=== PATIENT | female | born 1950 | race Asian ===

== ENCOUNTER 2021-05-02 13:28 | Inpatient (IN) | payer MEDICARE ==
[~2021-05-02] VITALS: Ht 154.9 cm; Wt 94.3 kg
--- NOTE | 2021-05-02 14:10 | NUR ---
ROSALES RN: ICE PACK APPLIED IN TRIAGE.
--- NOTE | 2021-05-02 17:32 | NUR ---
PT BIBA, FELL OFF OF STOOL, RIGHT KNEE PAIN, UNABLE TO BEAR WEIGHT 2/2 PAIN DISTAL CMS. PT A&O, RESPS EVEN AND UNLABORED, VSS, NADN.
--- NOTE | 2021-05-02 18:43 | NUR ---
anshu Barron at bedside for eval
--- NOTE | 2021-05-02 19:00 | NUR ---
pt to radiology
[2021-05-02] MEDS ORDERED: ONDANSETRON 2MG/ML, 2ML ONE (20:09)
[2021-05-02] MEDS ORDERED: MORPHINE SULFATE 4 MG/ML, 1ML ONE (20:09)
[2021-05-02] MEDS ORDERED: METO1TAB7 PO (20:27)
[2021-05-02] MEDS ORDERED: ATOR-2 PO (20:27)
--- NOTE | 2021-05-02 20:28 | NUR ---
PIV placed, pt medicated per order, tolerated well. pt aware of admit plan
[2021-05-02] MEDS ORDERED: ONDANSETRON 2MG/ML, 2ML IVPush ONE (20:30)
[2021-05-02] MEDS ORDERED: MORPHINE SULFATE 4 MG/ML, 1ML IVPush PRN (20:30)
[2021-05-02 20:50] LABS: BASOPHILS % (AUTO) 1 % (0-1); EOSINOPHILS % (AUTO) 1 % (1-7); LYMPHOCYTES % (AUTO) 11 % (22-44); MEAN CORPUSCULAR HEMOGLOBIN 28.6 pg (27.0-34.8); MEAN PLATELET VOLUME 7.9 fL (7.4-10.4); MONOCYTES % (AUTO) 6 % (2-9); NEUTROPHILS % (AUTO) 82 % (42-75); PLATELET COUNT 325 x10^3/uL (130-400); RED BLOOD COUNT 5.14 x10^6/uL (3.82-5.3); RED CELL DISTRIBUTION WIDTH 14.2 % (9.6-15.2)
[2021-05-02 20:59] LABS: ALBUMIN 3.6 g/dL (3.4-5.0); ANION GAP 7 mmol/L (5-15); CALCIUM 8.6 mg/dL (8.5-10.1); CHLORIDE 108 mmol/L (98-107); CREATININE 0.45 mg/dL (0.55-1.02)
--- NOTE | 2021-05-02 21:20 | NUR ---
Pt to be admitted to , room 454. Report called to FAMILIA DUDLEY.
[2021-05-02] MEDS ORDERED: OXYcodone IR 5MG TABLET PO PRN (21:30)
[2021-05-02] MEDS ORDERED: ONDANSETRON 2MG/ML, 2ML IVPush PRN (21:30)
[2021-05-02] MEDS ORDERED: POLYETHYLENE GLYCOL 17 GM PACKET PO PRN (21:30)
[2021-05-02] MEDS ORDERED: HYDROmorphone 2 MG/ML, 1ML IVPush PRN (21:30)
[2021-05-02] MEDS ORDERED: DILTIAZEM 5 MG/ML, 5ML IVPush PRN (21:30)
[2021-05-02] MEDS ORDERED: MELATONIN 5 MG TABLET PO PRN (21:30)
[2021-05-02] MEDS ORDERED: LABETALOL 5MG/ML, 20ML IVPush PRN (21:30)
[2021-05-02] MEDS: ACETAMINOPHEN 500 MG TABLET PO SCH (22:11)
[2021-05-02 23:06] VITALS: BP 121/73
[2021-05-03] MEDS: ACETAMINOPHEN 500 MG TABLET PO SCH ×4 (01:00→12:39)
[2021-05-03 01:57] VITALS: BP 100/67
[2021-05-03 07:36] LABS: BASOPHILS % (AUTO) 0 % (0-1); EOSINOPHILS % (AUTO) 0 % (1-7); LYMPHOCYTES % (AUTO) 16 % (22-44); MEAN CORPUSCULAR HEMOGLOBIN 29.2 pg (27.0-34.8); MEAN CORPUSCULAR HGB CONC 33.6 g/dL (32.4-35.8); MEAN PLATELET VOLUME 8.2 fL (7.4-10.4); MONOCYTES % (AUTO) 8 % (2-9); NEUTROPHILS % (AUTO) 75 % (42-75); PLATELET COUNT 289 x10^3/uL (130-400); RED BLOOD COUNT 4.51 x10^6/uL (3.82-5.3); RED CELL DISTRIBUTION WIDTH 14.2 % (9.6-15.2)
[2021-05-03 07:41] LABS: ANION GAP 5 mmol/L (5-15); CALCIUM 8.4 mg/dL (8.5-10.1); CHLORIDE 108 mmol/L (98-107)
[2021-05-03 08:04] VITALS: BP 107/73
[2021-05-03] MEDS: KETOROLAC 30 MG/1 ML IV PRN (11:31)
[2021-05-03] MEDS: METOPROLOL SUCCINATE 100 MG TAB.ER.24H PO SCH (12:39)
[2021-05-03 14:50] VITALS: BP 101/72
[2021-05-03 19:30] VITALS: BP 103/74
[2021-05-03] MEDS: ACETAMINOPHEN 500 MG TABLET PO PRN (19:35)
[2021-05-04 00:51] VITALS: BP 120/81
[2021-05-04] MEDS: ACETAMINOPHEN 500 MG TABLET PO PRN (05:05)
[2021-05-04 06:54] LABS: BASOPHILS % (AUTO) 0 % (0-1); EOSINOPHILS % (AUTO) 1 % (1-7); LYMPHOCYTES % (AUTO) 17 % (22-44); MEAN CORPUSCULAR HEMOGLOBIN 29.4 pg (27.0-34.8); MEAN CORPUSCULAR HGB CONC 33.9 g/dL (32.4-35.8); MEAN PLATELET VOLUME 8.2 fL (7.4-10.4); MONOCYTES % (AUTO) 9 % (2-9); NEUTROPHILS % (AUTO) 73 % (42-75); PLATELET COUNT 250 x10^3/uL (130-400); RED BLOOD COUNT 4.33 x10^6/uL (3.82-5.3); RED CELL DISTRIBUTION WIDTH 14.1 % (9.6-15.2)
[2021-05-04 06:57] LABS: INTERNATIONAL NORMALIZED RATIO 1.02 (0.93-1.1); PROTHROMBIN TIME 10.9 Seconds (9.6-11.5)
[2021-05-04 07:01] LABS: ALANINE AMINOTRANSFERASE 16 U/L (12-78); ANION GAP 6 mmol/L (5-15); CALCIUM 8.4 mg/dL (8.5-10.1); CHLORIDE 107 mmol/L (98-107); CREATININE 0.33 mg/dL (0.55-1.02)
[2021-05-04 07:03] LABS: ALKALINE PHOSPHATASE 90 U/L (45-117); BILIRUBIN,TOTAL 1.1 mg/dL (0.2-1.0); TOTAL PROTEIN 6.8 g/dL (6.4-8.2)
[2021-05-04] MEDS ORDERED: POTASSIUM CHLORIDE 40 MEQ in SODIUM CHLORIDE 0.9% 500 ML IV ONE (08:00)
[2021-05-04 08:02] VITALS: BP 106/67
[2021-05-04] MEDS: KETOROLAC 30 MG/1 ML IV PRN (09:43)
[2021-05-04] MEDS: METOPROLOL SUCCINATE 100 MG TAB.ER.24H PO SCH (09:50)
[2021-05-04 15:15] VITALS: BP 132/74
[2021-05-04] MEDS ORDERED: PROMETHAZINE 25 MG/ML, 1ML IVPush PRN (16:00)
[2021-05-04] MEDS ORDERED: OXYcodone 5 MG/5 ML ORAL.SOL UDC PO PRN (16:00)
[2021-05-04] MEDS ORDERED: ACETAMINOPHEN 325 MG TABLET PO PRN (16:00)
[2021-05-04] MEDS ORDERED: HYDROmorphone 1 MG/ML, 1ML INJ IVPush PRN (16:00)
[2021-05-04] MEDS ORDERED: LABETALOL 5MG/ML, 20ML IV PRN (16:00)
[2021-05-04] MEDS ORDERED: ONDANSETRON 2MG/ML, 2ML IVPush PRN (16:00)
[2021-05-04] MEDS ORDERED: hydrALAzine 20 MG/ML, 1ML IV PRN (16:00)
[2021-05-04] MEDS ORDERED: FENTANYL PF 100 MCG/2ML IV PRN (16:00)
[2021-05-04] MEDS ORDERED: FENTANYL PF 250 MCG/5ML ONE (16:29)
[2021-05-04] MEDS ORDERED: MIDAZOLAM 1 MG/ML, 2ML ONE (16:29)
[2021-05-04] MEDS ORDERED: CHLORHEXIDINE 15 ML UDC PO ONE (16:30)
[2021-05-04] MEDS ORDERED: SUCCINYLCHOLINE 20 MG/ML, 10ML ONE (16:31)
[2021-05-04] MEDS ORDERED: PROPOFOL 10 MG/ML, 20ML ONE (16:31)
[2021-05-04] MEDS ORDERED: PHENYLEPHRINE 10 MG/ML ONE (17:23)
[2021-05-04] MEDS ORDERED: ROCURONIUM 10 MG/ML,10ML ONE (17:23)
[2021-05-04] MEDS ORDERED: DEXAMETHASONE 4 MG/ML, 1ML ONE ×2 (17:32)
[2021-05-04] MEDS ORDERED: METOPROLOL 1 MG/ML, 5ML ONE ×2 (17:34→18:02)
[2021-05-04] MEDS ORDERED: CEFAZOLIN 1,000 MG ONE ×2 (17:38)
[2021-05-04] MEDS ORDERED: ONDANSETRON 2MG/ML, 2ML ONE (18:03)
[2021-05-04 19:51] VITALS: BP 117/74
[2021-05-04] MEDS ORDERED: HYDROcodone/APAP 7.5-325MG/15ML UDC PO PRN (21:00)
[2021-05-04] MEDS ORDERED: HYDROmorphone 2 MG/ML, 1ML IVPush PRN (21:00)
[2021-05-04] MEDS: KETOROLAC 30 MG/1 ML IV SCH (21:42)
[2021-05-04] MEDS ORDERED: ONDANSETRON 2MG/ML, 2ML IV PRN (22:00)
[2021-05-05] MEDS: CEFAZOLIN PMX 2GM/50ML 50 ML IVPB SCH ×2 (00:21→09:12)
[2021-05-05] MEDS: OXYcodone/APAP 5/325MG TABLET PO PRN (01:43)
[2021-05-05 02:00] VITALS: BP 118/82
[2021-05-05] MEDS: KETOROLAC 30 MG/1 ML IV SCH ×2 (05:00→13:00)
[2021-05-05 06:27] LABS: BASOPHILS % (AUTO) 0 % (0-1); EOSINOPHILS % (AUTO) 0 % (1-7); LYMPHOCYTES % (AUTO) 6 % (22-44); MEAN CORPUSCULAR HEMOGLOBIN 29.5 pg (27.0-34.8); MEAN CORPUSCULAR HGB CONC 33.6 g/dL (32.4-35.8); MEAN PLATELET VOLUME 8.8 fL (7.4-10.4); MONOCYTES % (AUTO) 4 % (2-9); NEUTROPHILS % (AUTO) 90 % (42-75); PLATELET COUNT 281 x10^3/uL (130-400); RED BLOOD COUNT 4.41 x10^6/uL (3.82-5.3); RED CELL DISTRIBUTION WIDTH 13.9 % (9.6-15.2)
[2021-05-05 06:41] LABS: CHLORIDE 104 mmol/L (98-107)
[2021-05-05 06:45] LABS: ANION GAP 6 mmol/L (5-15); CALCIUM 8.8 mg/dL (8.5-10.1); CREATININE 0.43 mg/dL (0.55-1.02)
[2021-05-05 07:07] VITALS: BP 104/63
[2021-05-05] MEDS ORDERED: ENOXAPARIN 40 MG/0.4 ML SQ SCH (08:00)
[2021-05-05] MEDS: ACETAMINOPHEN 500 MG TABLET PO PRN ×3 (09:11→20:45)
[2021-05-05] MEDS: METOPROLOL SUCCINATE 100 MG TAB.ER.24H PO SCH (09:11)
[2021-05-05] MEDS ORDERED: ASPI81TA45 PO ×2 (11:40)
[2021-05-05] MEDS ORDERED: IBUP-1221 PO ×2 (11:40)
[2021-05-05] MEDS ORDERED: ACET-1600 PO (11:40)
[2021-05-05] MEDS ORDERED: OXYC5TAB98 PO (12:09)
[2021-05-05] MEDS ORDERED: APIX5TAB PO ×2 (12:09)
[2021-05-05] MEDS: APIXABAN 5 MG TABLET PO SCH ×2 (13:59→20:45)
[2021-05-05 14:35] VITALS: BP 121/73
[2021-05-05 20:00] VITALS: BP 108/60
[2021-05-06 00:15] VITALS: BP 122/79
[2021-05-06] MEDS: OXYcodone/APAP 5/325MG TABLET PO PRN ×4 (01:08→20:20)
[2021-05-06 08:00] VITALS: BP 95/62
[2021-05-06] MEDS: METOPROLOL SUCCINATE 100 MG TAB.ER.24H PO SCH (08:54)
[2021-05-06] MEDS: APIXABAN 5 MG TABLET PO SCH ×2 (08:54→20:20)
[2021-05-06] MEDS ORDERED: APIX5TAB PO (12:39)
[2021-05-06 12:53] VITALS: BP 111/52
[2021-05-06 20:03] VITALS: BP_SYST 92; BP_SYST 98; BP_DIAS 50; BP_DIAS 65
[2021-05-07 02:30] VITALS: BP 95/63
[2021-05-07] MEDS: OXYcodone/APAP 5/325MG TABLET PO PRN ×4 (04:24→20:20)
[2021-05-07 07:09] VITALS: BP 132/76
[2021-05-07] MEDS: APIXABAN 5 MG TABLET PO SCH ×2 (08:32→20:20)
[2021-05-07] MEDS: METOPROLOL SUCCINATE 100 MG TAB.ER.24H PO SCH (08:32)
[2021-05-07 14:16] VITALS: BP 148/71
[2021-05-07 20:06] VITALS: BP 133/80
[2021-05-08 01:29] VITALS: BP 123/80
[2021-05-08] MEDS: OXYcodone/APAP 5/325MG TABLET PO PRN (06:55)
[2021-05-08 09:16] VITALS: BP 92/64
[2021-05-08] MEDS: APIXABAN 5 MG TABLET PO SCH ×2 (10:12→20:19)
[2021-05-08] MEDS: METOPROLOL SUCCINATE 100 MG TAB.ER.24H PO SCH (10:12)
[2021-05-08 15:45] VITALS: BP 100/58
[2021-05-08 19:49] VITALS: BP 109/57
[2021-05-09] MEDS: OXYcodone/APAP 5/325MG TABLET PO PRN ×3 (02:00→18:41)
[2021-05-09 03:48] VITALS: BP 104/69
[2021-05-09 07:45] VITALS: BP 114/77
[2021-05-09] MEDS: METOPROLOL SUCCINATE 100 MG TAB.ER.24H PO SCH (08:00)
[2021-05-09] MEDS: APIXABAN 5 MG TABLET PO SCH ×2 (08:01→20:08)
[2021-05-09 14:44] VITALS: BP 92/64
[2021-05-09] MEDS ORDERED: MAGNESIUM CITRATE 300ML ORAL SOL PO ONE (15:00)
[2021-05-09 20:18] VITALS: BP 114/81
[2021-05-10 02:30] VITALS: BP 124/77
[2021-05-10 08:27] VITALS: BP 119/79
[2021-05-10] MEDS: METOPROLOL SUCCINATE 100 MG TAB.ER.24H PO SCH (08:31)
[2021-05-10] MEDS: APIXABAN 5 MG TABLET PO SCH (08:31)
[2021-05-10] MEDS: OXYcodone/APAP 5/325MG TABLET PO PRN (08:32)
== END 2021-05-10 15:48 | DRG 493 ==
LOC: ED 20:19 → EDIP 20:51 → 4NE 21:40 → 4EST 22:53
PROVIDERS: ADMIT Internal Medicine; ATTEND Internal Medicine
PROC: 0QSG04Z Reposition Right Tibia with Internal Fixation Device, Open Approach (ICD-10-PCS; principal; 2021-05-04 18:00)
DX: S82.141A Displaced bicondylar fracture of right tibia, initial encounter for closed fracture (principal); Z68.41 Body mass index [BMI] 40.0-44.9, adult; W07.XXXA Fall from chair, initial encounter; I48.91 Unspecified atrial fibrillation; E66.01 Morbid (severe) obesity due to excess calories; Z20.822 Contact with and (suspected) exposure to COVID-19; Z79.899 Other long term (current) drug therapy; Y92.511 Restaurant or cafe as the place of occurrence of the external cause; Z79.01 Long term (current) use of anticoagulants; Z86.73 Personal history of transient ischemic attack (TIA), and cerebral infarction without residual deficits; Y93.89 Activity, other specified; Y99.8 Other external cause status
CPT/HCPCS: 36415; 76000; 80048; 80053; 82040; 83735; 84100; 85025; 85610; 87635; 93005; 93306; 96374; 96375; C1713; G0378; J0690; J1100; J1885; J2250; J2405; J2704; J3010; J3480; J0330; J2270; J2370; J7040